=== PATIENT | male | born 1945 | race Two or more races ===

== ENCOUNTER 2017-04-12 02:22 | Emergency (ER) | payer OTHER ==
[2017-04-12 02:28] VITALS: TEMP 99
--- NOTE | 2017-04-12 02:30 | EDPHY ---
H & P Stated Complaint: cough, sore throat, PIEDRA since yesterday night HPI/ROS: HPI CHIEF COMPLAINT: Cough, sore throat, headache, sinus congestion HISTORY OF PRESENT ILLNESS: This patient is a 71-year-old male, significant past medical history for anxiety, Parkinson's, hypertension, hyperlipidemia, presents emergency room, with 2 days or 48 hours of a cough that is now turned productive with clear sputum, sore throat, discharge out of the left eye, no fever. Denies hemoptysis. Denies chest pain or shortness of breath. Has a bronchitic cough. No history of PE or DVT. Past Medical History: CABG, coronary artery disease, BPH, insomnia, hypertension, hyperlipidemia Past Surgical History: CABG Social History: Denies daily use of drugs alcohol tobacco products. Family History: Noncontributory ROS REVIEW OF SYSTEMS: A comprehensive 10 point review of systems is otherwise negative aside from elements mentioned in the history of present illness. Exam Constitutional appears well nontoxic, triage nursing summary reviewed, vital signs reviewed, awake/alert. Vital signs noted no hypoxia no fever. Slight tachycardia. Eyes normal conjunctivae and sclera, EOMI, PERRLA. Left eye at the medial canthus there is yellow discharge. Otherwise unremarkable eye exam bilaterally. HENT posterior pharynx no significant exudate, no significant swelling, mild erythema normal inspection, atraumatic, moist mucus membranes, no epistaxis, neck supple/ no meningismus, no raccoon eyes. Respiratory decreased breath sounds bilaterally, bronchitic sounding cough, minimal wheezing faintly bilateral bases. No crackles. Cardiovascular rate normal, regular rhythm, no murmur, no edema, distal pulses normal. Gastrointestinal soft, non-tender, no rebound, no guarding, normal bowel sounds, no distension, no pulsatile mass. Genitourinary no CVA tenderness. Musculoskeletal no midline vertebral tenderness, full range of motion, no calf swelling, no tenderness of extremities, no meningismus, good pulses, neurovascularly intact. Skin pink, warm, & dry, no rash, skin atraumatic. Neurologic awake, alert and oriented x 3, AAOx3, moves all 4 extremities equally, motor intact, sensory intact, CN II-XII intact, normal cerebellar, normal vision, normal speech. Psychiatric normal mood/affect. Heme/Lymph/Immune no lymphadenopathy. Differential Diagnosis: Includes but is not limited to in a particular order, viral syndrome, upper respiratory tract infection, viral pneumonia, bacterial pneumonia, reactive airway disease, CHF Medical Decision Making: Plan for this patient two view chest x-ray, DuoNeb breathing treatment. Re-evaluate. Rule out pneumonia. Re-evaluation: ED x-ray chest two view: Left lower lobe pneumonia. Otherwise unremarkable. Chest X-ray interpreted by myself. [id number]: Patient received breathing treatment feeling much better. Clear lungs. Coughing at times. Vital signs stable. No hypoxia no fever. Understands strict return precautions. Return if high fever, shortness of breath or worsening condition. He understands. X-ray shows left lower lobe pneumonia early. 1st dose of azithromycin and prednisone given. Prescription for azithromycin, prednisone, albuterol, [place] for cough and pain control. Drink lots of fluids. Continue his Mucinex. He understands. Source: Patient - Personal History Current Tetanus/Diphtheria Vaccine: No Current Tetanus Diphtheria and Acellular Pertussis (TDAP): No - Medical/Surgical History Hx Asthma: No Hx Chronic Respiratory Disease: No Hx Diabetes: No Hx Cardiac Disease: Yes Hx Renal Disease: No Hx Cirrhosis: No Hx Alcoholism: No Hx HIV/AIDS: No Hx Splenectomy or Spleen Trauma: No Other PMH: afib, hypertension, parkinson's, open heart surg 98/angioplasty 2013 , Cataract surgery 05/15/15, pacemaker, 2 stents placed, prostatectomy - Social History Smoking Status: Former smoker Constitutional: Initial Vital Signs Temperature (C) 37.2 C 04/12/17 02:25 Heart Rate 106 H 04/12/17 02:25 Respiratory Rate 18 04/12/17 02:25 Blood Pressure 123/80 H 04/12/17 02:25 O2 Sat (%) 93 04/12/17 02:25 O2 Delivery Mode Room Air Allergies/Adverse Reactions: No Known Allergies Allergy (Verified 07/19/16 00:07) Home Medications: Medication Instructions Recorded Dabigatran Etexilate Mesyl 150 mg PO BID 03/08/13 [Pradaxa 150 MG (*)] Nitroglycerin [Nitrostat 0.4 mg 0.4 mg SL PRN PRN 03/08/13 (*)] Lisinopril [Zestril 2.5 mg (*)] 2.5 mg PO DAILY 05/18/15 Simvastatin 40 mg PO DAILY 03/09/16 Metoprolol Tartrate [Lopressor 50 100 mg PO BID #0 tab 03/11/16 mg (*)] LORazepam [Ativan] 1 mg PO DAILY #5 tablet 07/19/16 AZITHROMYCIN [Z-PACK] 250 mg PO DAILY #6 tab 04/12/17 Albuterol [Proventil Inhaler HFA 1 - 2 puffs IH Q4H #1 mdi 04/12/17 (*)] Hydrocodone/APAP 5/325 [[place] 1 - 2 tab PO Q4H PRN #10 tab 04/12/17 5/325 (*)] predniSONE 60 mg PO DAILY #15 tab 04/12/17 Medical Decision Making - Data Points Medications Given: Discontinued Medications Albuterol/Ipratropium (Duoneb) 3 ml IH EDNOW ONE Stop: 04/12/17 02:37 Last Admin: 04/12/17 02:56 Dose: 3 ml Azithromycin (Zithromax) 500 mg PO EDNOW ONE PRN Reason: Protocol Stop: 04/12/17 02:47 Last Admin: 04/12/17 02:56 Dose: 500 mg Benzonatate (Tessalon Pearles) 200 mg PO EDNOW ONE Stop: 04/12/17 02:47 Last Admin: 04/12/17 02:56 Dose: 200 mg Prednisone (Prednisone) 60 mg PO EDNOW ONE Stop: 04/12/17 02:47 Last Admin: 04/12/17 02:57 Dose: 60 mg Departure - Departure Disposition: Home, Routine, Self-Care Clinical Impression: Viral pneumonia Upper respiratory tract infection Qualifiers: URI type: unspecified viral URI Qualified Code(s): J06.9 - Acute upper respiratory infection, unspecified Condition: Good Instructions: Viral Pneumonia (ED), Upper Respiratory Infection (ED), Acute Bronchitis (ED) Additional Instructions: 1.Drink lots of fluids stay well-hydrated. 2. Return emergency room if you have worsening symptoms includes shortness of breath, high fever, you do not feel well or vomiting. 3. If your feeling worse or short of breath or high fever can't breathe return emergency room. 4. Your x-ray shows a may have a pneumonia in her left lung. Referrals: AILYN REVELES [Primary Care Provider] - As per Instructions Prescriptions: Albuterol [Proventil Inhaler HFA (*)] 1 - 2 puffs IH Q4H #1 mdi AZITHROMYCIN [Z-PACK] 250 mg PO DAILY #6 tab Hydrocodone/APAP 5/325 [[place] 5/325 (*)] 1 - 2 tab PO Q4H PRN #10 tab PRN Reason: Pain, Moderate predniSONE 60 mg PO DAILY #15 tab
[2017-04-12] MEDS ORDERED: IPRATROPIUM/ALBUTEROL 3 ML DEYVIAL ONE (02:36)
[2017-04-12] MEDS ORDERED: IPRATROPIUM/ALBUTEROL 3 ML DEYVIAL IH ONE (02:36)
[2017-04-12] MEDS ORDERED: AZITHROMYCIN 250 MG TAB PO ONE (02:46)
[2017-04-12] MEDS ORDERED: BENZONATATE 100 MG CAP PO ONE (02:46)
[2017-04-12] MEDS ORDERED: predniSONE 20 MG TAB PO ONE (02:46)
[2017-04-12 03:21] VITALS: PULSE 100; RESP 16
[2017-04-12 03:43] VITALS: BP 117/68; O2SAT 92
== END 2017-04-12 03:42 | disposition home or self-care (01) ==
DX: J06.9 Acute upper respiratory infection, unspecified (principal); J12.9 Viral pneumonia, unspecified; I25.810 Atherosclerosis of coronary artery bypass graft(s) without angina pectoris; I10 Essential (primary) hypertension; G20 Parkinson's disease; Z87.891 Personal history of nicotine dependence; Z95.0 Presence of cardiac pacemaker

== ENCOUNTER 2017-08-02 12:08 | Emergency (ER) | payer OTHER ==
[2017-08-02 12:19] VITALS: TEMP 98.4
[2017-08-02 13:33] VITALS: RESP 16
--- NOTE | 2017-08-02 13:37 | CPEKG ---
Heart Rate: 69 RR Interval: 870 QRSD Interval: 88 QT Interval: 400 QTC Interval: 429 QRS Edwards: -21 T Wave Edwards: -48 EKG Severity - ABNORMAL ECG - EKG Impression: AFIB/FLUT AND V-PACED COMPLEXES EKG Impression: BORDERLINE LEFT AXIS DEVIATION EKG Impression: NONSPECIFIC T ABNORMALITIES, DIFFUSE LEADS Electronically Signed By: Dipak Le 02-Aug-2017 14:23:54
--- NOTE | 2017-08-02 13:45 | EDPHY ---
H & P Stated Complaint: pt states fast irregular hr with diophresis and nausea woke from sleep Time Seen by Provider: 08/02/17 13:23 HPI/ROS: CHIEF COMPLAINT: Palpitations HISTORY OF PRESENT ILLNESS: The patient presents to the ED for evaluation of palpitations. He has had 2 episodes over the past 12 hours for he reports his heart rate has been 80-90. He reports his is an atypical heart rate for him. He had mild diaphoresis associated with 1 episode which resolved. He has no complaints of chest pain or shortness of breath. The patient does have a history of CABG and multivessel coronary artery disease. Angiogram performed last year demonstrated no evidence of critical stenosis. The patient denies any history of fever, cough or congestion. The patient has been taking his regular medications which include Pradaxa and metoprolol. REVIEW OF SYSTEMS: A comprehensive 10 point review of systems is otherwise negative aside from elements mentioned in the history of present illness. Source: Patient Exam Limitations: No limitations - Personal History Current Tetanus/Diphtheria Vaccine: Yes Current Tetanus Diphtheria and Acellular Pertussis (TDAP): Yes - Medical/Surgical History Hx Asthma: No Hx Chronic Respiratory Disease: No Hx Diabetes: No Hx Cardiac Disease: Yes Hx Renal Disease: No Hx Cirrhosis: No Hx Alcoholism: No Hx HIV/AIDS: No Hx Splenectomy or Spleen Trauma: No Other PMH: afib, hypertension, parkinson's, open heart surg 98/angioplasty 2013 , Cataract surgery 05/15/15, pacemaker, 2 stents placed, prostatectomy - Social History Smoking Status: Former smoker - Physical Exam Exam: General Appearance: Alert, no distress Eyes: Pupils equal and round no pallor or injection ENT, Mouth: Mucous membranes moist Respiratory: There are no retractions, lungs are clear to auscultation Cardiovascular: Regular rate and rhythm Gastrointestinal: Abdomen is soft and nontender, no masses, bowel sounds normal Neurological: A&O, normal motor function, normal sensory exam, normal cranial nerves Skin: Warm and dry, no rashes Musculoskeletal: Neck is supple nontender Extremities: symmetrical, full range of motion Constitutional: Initial Vital Signs Temperature (C) 36.9 C 08/02/17 12:18 Heart Rate 84 08/02/17 12:18 Respiratory Rate 18 08/02/17 12:18 Blood Pressure 138/80 H 08/02/17 12:18 O2 Sat (%) 97 08/02/17 12:18 O2 Delivery Mode Room Air Allergies/Adverse Reactions: No Known Allergies Allergy (Verified 07/19/16 00:07) Home Medications: Medication Instructions Recorded Dabigatran Etexilate Mesyl 150 mg PO BID 03/08/13 [Pradaxa 150 MG (*)] Nitroglycerin [Nitrostat 0.4 mg 0.4 mg SL PRN PRN 03/08/13 (*)] Lisinopril [Zestril 2.5 mg (*)] 2.5 mg PO DAILY 05/18/15 Simvastatin 40 mg PO DAILY 03/09/16 Metoprolol Tartrate [Lopressor 50 100 mg PO BID #0 tab 03/11/16 mg (*)] LORazepam [Ativan] 1 mg PO DAILY #5 tablet 07/19/16 AZITHROMYCIN [Z-PACK] 250 mg PO DAILY #6 tab 04/12/17 Albuterol [Proventil Inhaler HFA 1 - 2 puffs IH Q4H #1 mdi 04/12/17 (*)] Medical Decision Making - Diagnostics EKG Interpretation: EKG: Complete interpretation has been separately recorded in the [employer] archive. Summary impression: Intermittently paced atrial fibrillation, rate 69 ED Course/Re-evaluation: The patient presents to the emergency department with 2 episodes of discrete palpitations with heart rates in the 80-90 range. The patient had no ischemic symptoms. The patient has a angiogram which has been performed within the past year which demonstrated no evidence of stenosis of his grafts. The patient denies any complaints of fever, cough or congestion. He is hemodynamically stable without evidence of arrhythmia. The patient's pacemaker was interrogated by the [employer] senior customer service representative. There is no evidence of any tachyarrhythmia the device recorded. The patient was monitored in the emergency department without evidence of a tachyarrhythmia. At this point time the patient is reassured that we see no evidence of a significant arrhythmia. I do feel comfortable discharging the patient home with instructions that he return to the ED for the development of any significant symptoms such as persistent palpitations, chest pain, shortness of breath or other concerns. The patient follow up with his regular [employer] Dr. Cornejo as scheduled. Differential Diagnosis: Differential diagnosis considered includes atrial fibrillation, ventricular tachycardia, atrial flutter, pacemaker malfunction - Data Points Laboratory Results: Laboratory Results 08/02/17 13:43 08/02/17 13:43 08/02/17 08/02/17 13:43 13:43 WBC 4.67 10^3/uL 10^3/uL (3.80-9.50) RBC 4.87 10^6/uL 10^6/uL (4.40-6.38) Hgb 14.2 g/dL g/dL (13.7-17.5) Hct 43.5 % % (40.0-51.0) MCV 89.3 fL fL (81.5-99.8) MCH 29.2 pg pg (27.9-34.1) MCHC 32.6 g/dL g/dL (32.4-36.7) RDW 14.7 % % (11.5-15.2) Plt Count 199 10^3/uL 10^3/uL (150-400) MPV 10.4 fL fL (8.7-11.7) Neut % (Auto) 65.1 % % (39.3-74.2) Lymph % (Auto) 24.6 % % (15.0-45.0) [place] % (Auto) 7.3 % % (4.5-13.0) Eos % (Auto) 2.4 % % (0.6-7.6) Baso % (Auto) 0.4 % % (0.3-1.7) Nucleat RBC Rel Count 0.0 % % (0.0-0.2) Absolute Neuts (auto) 3.04 10^3/uL 10^3/uL (1.70-6.50) Absolute Lymphs (auto) 1.15 10^3/uL 10^3/uL (1.00-3.00) Absolute Monos (auto) 0.34 10^3/uL 10^3/uL (0.30-0.80) Absolute Eos (auto) 0.11 10^3/uL 10^3/uL (0.03-0.40) Absolute Basos (auto) 0.02 10^3/uL 10^3/uL (0.02-0.10) Absolute Nucleated RBC 0.00 10^3/uL 10^3/uL (0-0.01) Immature Gran % 0.2 % % (0.0-1.1) Immature Gran # 0.01 10^3/uL 10^3/uL (0.00-0.10) Sodium 141 mEq/L mEq/L (134-144) Potassium 3.9 mEq/L mEq/L (3.5-5.2) Chloride 105 mEq/L mEq/L (97-110) Carbon Dioxide 25 mEq/l mEq/l (22-31) Anion Gap 11 mEq/L mEq/L (8-16) BUN 20 mg/dL mg/dL (7-23) Creatinine 0.9 mg/dL mg/dL (0.7-1.3) Estimated GFR > 60 Glucose 120 mg/dL H mg/dL (70-100) Calcium 9.2 mg/dL mg/dL (8.5-10.4) Troponin I < 0.012 ng/mL ng/mL (0.000-0.034) Departure - Departure Disposition: Home, Routine, Self-Care Clinical Impression: Palpitations Condition: Good Instructions: Palpitations (ED) Additional Instructions: 1. Please follow up with your [employer] as scheduled. 2. Please return to the emergency department for any worsening symptoms, chest pain, difficulty breathing or other concerns. 3. Your pacemaker demonstrates no evidence of malfunction or the recording of a significant arrhythmia. Referrals: AILYN REVELES [Primary Care Provider] - As per Instructions
[2017-08-02 13:54] LABS: PLATELET COUNT 199 10^3/uL (150-400)
[2017-08-02 15:06] VITALS: BP 126/81; PULSE 56; O2SAT 96
== END 2017-08-02 15:06 | disposition home or self-care (01) ==
DX: R00.2 Palpitations (principal); I10 Essential (primary) hypertension; G20 Parkinson's disease; Z95.5 Presence of coronary angioplasty implant and graft; Z95.0 Presence of cardiac pacemaker; Z87.891 Personal history of nicotine dependence